=== PATIENT | female | born 1940 | race Caucasian/White ===

== ENCOUNTER 2018-05-01 09:15 | Emergency (ER) | payer MEDICARE, OTHER ==
[~2018-05-01] VITALS: Ht 165.1 cm; Wt 61.0 kg
[~2018-05-01 09:15] MED LIST: ACYC400T PO; ASPI81TA81; B-COTAB10 PO; MAGN400T2 PO; MULT-120 PO; POTA595T PO; TRAM50TA PO; XARE20TA PO; [UNRECOGNIZED DRUG - CODE] IV; [UNRECOGNIZED DRUG - OTHER] PO
[2018-05-01] MEDS ORDERED: SODIUM CHLOR 0.9% 1000 ML INJ 1,000 ML IV ONE (09:21)
--- NOTE | 2018-05-01 09:26 | PD ---
HPI Chief Complaint: Stroke Alert Time Seen by Provider: 09:21 Travel History International Travel<30 days: No Contact w/Intl Traveler<30days: No Traveled to known affect area: No History of Present Illness HPI This 77-year-old female says that yesterday she had poor vision in her left eye. She wake woke up this morning and was having coffee and noted that it was coming out of the side of her mouth. She looked at him mirror and noted that her left side of her face was deformed. She has no history of stroke. She does have a history of multiple myeloma and has been on chemotherapy since 2010. She is on Xarelto but she says she has not taken it for the last 2 days because she was taking some aspirin for back pain. sHe believes that her face looked normal yesterday. On questioning her later he says that he noticed some facial weakness last night. She does have a history of a pulmonary embolus and is on Xarelto. He is not having headache. There is no pain in the ear PFSH Past Medical History Arthritis: No Cancer: Yes (multiple myeloma) Cardiovascular Problems: No Chemotherapy: Yes (MULTIBLE MYLENOMA) Diabetes: No Diminished Hearing: No Neurologic: No Psychiatric: No Reproductive: No Respiratory: No Immunizations Current: Yes Thyroid Disease: No ?: Not Menopausal: Yes Past Surgical History Other Surgery: No Social History Alcohol Use: No Tobacco Use: No Substance Use: No Allergies-Medications (Allergen,Severity, Reaction): Coded Allergies: latex (Unverified Allergy, Unknown, RASH, 05/01/18) morphine (Unverified Allergy, Unknown, COMA, 05/01/18) oxycodone (Unverified Allergy, Unknown, COMA, 05/01/18) Reported Meds & Prescriptions Reported Meds & Active Scripts Active Reported Darzalex Inj (Daratumumab Inj) 400 Mg/20 Ml Soln 1 Injection IV V4HPHGH Xarelto (Rivaroxaban) 20 Mg Tab 20 Mg PO DAILY Acyclovir 400 Mg Tab 400 Mg PO WEEKLY Review of Systems General / Constitutional: No: Fever, Chills Eyes: Positive: Blurred Vision HENT: No: Headaches, Vertigo, Lightheadedness Cardiovascular: No: Chest Pain or Discomfort, Palpitations Respiratory: No: Cough, Shortness of Breath Gastrointestinal: No: Vomiting, Diarrhea Genitourinary: No: Urgency Musculoskeletal: Positive: Pain Skin: No Rash Neurologic: Positive: Weakness Endocrine: No: Heat Intolerance, Cold Intolerance Hematologic/Lymphatic: No: Easy Bruising Physical Exam Narrative GENERAL: well Developed female SKIN: Focused skin assessment warm/dry. HEAD: Atraumatic. Normocephalic. EYES: Pupils equal and round. No scleral icterus. No injection or drainage. ENT: No nasal bleeding or discharge. Mucous membranes pink and moist. NECK: Trachea midline. No JVD. CARDIOVASCULAR: Regular rate and rhythm. No murmur appreciated. RESPIRATORY: No accessory muscle use. Clear to auscultation. Breath sounds equal bilaterally. GASTROINTESTINAL: Abdomen soft, non-tender, nondistended. Hepatic and splenic margins not palpable. MUSCULOSKELETAL: No obvious deformities. No clubbing. No cyanosis. No edema. NEUROLOGICAL: Awake and alert. No obvious cranial nerve deficits. Motor grossly within normal limits. Normal speech. There is left-sided facial weakness. She is able to wrinkle the forehead. She is unable to close the eye tightly. Sensation is symmetric bilaterally PSYCHIATRIC: Normal insight and judgment Data Data Last Documented VS Vital Signs Date Time Temp Pulse Resp B/P (MAP) Pulse Ox O2 Delivery O2 Flow Rate FiO2 05/01/18 12:24 80 18 126/59 (81) 98 Room Air 05/01/18 09:36 97.8 Orders Orders Cath For Specimen (05/01/18 09:21) Neuro Checks Q2HX12,Q4H (05/01/18 09:21) Nursing Bedside Swallow Assess .ONCE (05/01/18 09:21) Activity Bed Rest (05/01/18 09:21) Diet Npo (05/01/18 Breakfast) Prothrombin Time / Inr (Pt) (05/01/18 09:21) Act Partial Throm Time (Ptt) (05/01/18 09:21) Complete Blood Count With Diff (05/01/18 09:21) Basic Metabolic Panel (Bmp) (05/01/18 09:21) Fibrinogen (05/01/18 09:21) Creatine Kinase (Cpk) (05/01/18 09:21) Troponin I (05/01/18 09:21) Ua Includes Microscopic (05/01/18 09:21) Drug Screen, Random Urine (05/01/18 09:21) Type And Screen (05/01/18 09:21) Ct Brain W/O Iv Contrast(Rout) (05/01/18 ) Electrocardiogram (05/01/18 ) Consult Neurology (05/01/18 09:21) Sodium Chlor 0.9% 1000 Ml Inj (Ns 1000 M (05/01/18 09:21) Blood Glucose (05/01/18 09:21) Ecg Monitoring (05/01/18 09:21) Iv Access Insert/Monitor (05/01/18 09:21) NPO (05/01/18 09:21) Oximetry (05/01/18 09:21) Resp Oxygen Nc Stroke (05/01/18 ) (Hub Use Only)Inp Phy Cons/Ref (05/01/18 ) Mri Brain W/O Contrast (05/01/18 09:34) Mra Brain W/O Contrast (Cow) (05/01/18 ) Labs Laboratory Tests Test 05/01/18 09:30 05/01/18 10:55 White Blood Count 3.2 TH/MM3 Red Blood Count 3.37 MIL/MM3 Hemoglobin 10.4 GM/DL Hematocrit 31.7 % Mean Corpuscular Volume 94.0 FL Mean Corpuscular Hemoglobin 30.8 PG Mean Corpuscular Hemoglobin Concent 32.8 % Red Cell Distribution Width 16.3 % Platelet Count 337 TH/MM3 Mean Platelet Volume 6.4 FL Neutrophils (%) (Auto) 61.0 % Lymphocytes (%) (Auto) 20.8 % Monocytes (%) (Auto) 15.6 % Eosinophils (%) (Auto) 2.1 % Basophils (%) (Auto) 0.5 % Neutrophils # (Auto) 1.9 TH/MM3 Lymphocytes # (Auto) 0.7 TH/MM3 Monocytes # (Auto) 0.5 TH/MM3 Eosinophils # (Auto) 0.1 TH/MM3 Basophils # (Auto) 0.0 TH/MM3 CBC Comment DIFF FINAL Differential Comment Prothrombin Time 10.6 SEC Prothromb Time International Ratio 1.0 RATIO Activated Partial Thromboplast Time 24.3 SEC Fibrinogen 452 mg/dL Blood Urea Nitrogen 16 MG/DL Creatinine 0.75 MG/DL Random Glucose 134 MG/DL Calcium Level 8.0 MG/DL Sodium Level 144 MEQ/L Potassium Level 4.1 MEQ/L Chloride Level 107 MEQ/L Carbon Dioxide Level 27.6 MEQ/L Anion Gap 9 MEQ/L Estimat Glomerular Filtration Rate 75 ML/MIN Total Creatine Kinase 25 U/L Troponin I LESS THAN 0.02 NG/ML Urine Collection Type VOIDED Urine Color YELLOW Urine Turbidity CLEAR Urine pH 7.0 Urine Specific [place] 1.015 Urine Protein NEG mg/dL Urine Glucose (UA) NEG mg/dL Urine Ketones NEG mg/dL Urine Occult Blood TRACE Urine Nitrite NEG Urine Bilirubin NEG Urine Urobilinogen 0.2 MG/DL Urine Leukocyte Esterase NEG Urine WBC 0-2 /hpf Urine Squamous Epithelial Cells 6-8 /hpf Urine Bacteria FEW /hpf Microscopic Urinalysis Comment Urine Opiates Screen NEG Urine Barbiturates Screen NEG Urine Amphetamines Screen NEG Urine Benzodiazepines Screen NEG Urine Cocaine Screen NEG Urine Cannabinoids Screen NEG MDM Medical Decision Making Medical Screen Exam Complete: Yes Emergency Medical Condition: Yes Medical Record Reviewed: Yes Differential Diagnosis Differential includes CVA, Montgomery's palsy Narrative Course On arrival we were led to believe that this is just started this morning stories stroke alert was called. A CT of the brain is negative. I have been able to talk to the and he relates that these weakness of the face actually started last night. Patient was initially declared a stroke alert. CT scan of the brain is negative. I spoke with Dr. Lewis who recommends MRI. The MRI is negative for stroke. This is consistent with Montgomery's palsy. Patient is on a lot of medication for her multiple myeloma. Her believes she takes 10 tablets of Decadron once a week. I am reluctant to prescribe a course of prednisone. I have tried to call her oncologist but have not been able to get through I have left a message. I will discharge the patient with a prescription for prednisone but I have urged her not to take it until we talk to the oncologist or until he talks to her Diagnosis Primary Impression: Montgomery's palsy Scripts Prednisone (Prednisone) 20 Mg Tab 20 MG PO DIRECTED, #24 TAB 0 Refills Take 60 MG daily x 4 days, then 40 MG x 4 days, then 20 MG daily x 4 days. Prov: Lee Pardo MD 05/01/18 Disposition: DISCHARGE HOME Condition: Stable Lee Pardo MD May 01, 2018 09:26
[2018-05-01 09:36] VITALS: BP 135/51; PULSE 91; RESP 18; TEMP 97.8; O2SAT 97
--- NOTE | 2018-05-01 09:38 | RADRPT ---
EXAM DATE: 05/01/2018 9:31 AM EDT AGE/SEX: 77 years / Female INDICATIONS: Stroke alert. Left facial droop. CLINICAL DATA: This is the patient's initial encounter. Patient reports that signs and symptoms have been present for 1 day and indicates a pain score of 0/10. MEDICAL/SURGICAL HISTORY: . Multiple myeloma. None. RADIATION DOSE: 51.25 CTDI (mGy) COMPARISON: [facility], CT BRAIN W/O CONTRAST, 03/31/2015. [facility], CT BRAIN W/O CONTRAST, 08/19/2013. . TECHNIQUE: CT of the head without contrast. Using automated exposure control and adjustment of the mA and/or kV according to patient size, radiation dose was kept as low as reasonably achievable to ob tain optimal diagnostic quality images. FINDINGS: Cerebrum: The ventricles are normal for age. No evidence of midline shift, mass lesion, hemorrhage or acute infarction. No extraaxial fluid collections are seen. Posterior Fossa: The cerebellum and brainstem are intact. The 4th ventricle is midline. The cerebe llopontine angle is unremarkable. Extracranial: The visualized portion of the orbits is intact. Skull: The calvaria is intact. No evidence of skull fracture. CONCLUSION: 1. Negative CT Head non contrast. The findings were called to Dr. Pardo at 9:37 AM on 05/01/2018. Electronically signed by: Paco Barrow MD 05/01/2018 9:37 AM EDT
[2018-05-01 09:41] VITALS: BP 137/59; PULSE 89; RESP 18; O2SAT 98
[2018-05-01 09:47] LABS: AUTOMATED NEUTROPHIL # 1.9 TH/MM3 (1.8-7.7); BASOPHIL % 0.5 % (0.0-2.0); EOSINOPHIL # 0.1 TH/MM3 (0-0.4); EOSINOPHIL % 2.1 % (0.0-4.0); HEMATOCRIT 31.7 % (35.0-46.0); HEMOGLOBIN 10.4 GM/DL (11.6-15.3); LYMPH % 20.8 % (9.0-44.0); LYMPHOCYTE # 0.7 TH/MM3 (1.0-4.8); MEAN CORPUSCULAR HEMOGLOBIN 30.8 PG (27.0-34.0); MEAN CORPUSCULAR HGB CONC 32.8 % (32.0-36.0); MEAN PLATELET VOLUME 6.4 FL (7.0-11.0); MONO % 15.6 % (0.0-8.0); MONOCYTE # 0.5 TH/MM3 (0-0.9); PLATELET COUNT 337 TH/MM3 (150-450); RED BLOOD COUNT 3.37 MIL/MM3 (4.00-5.30); RED CELL DISTRIBUTION WIDTH 16.3 % (11.6-17.2); WHITE BLOOD COUNT 3.2 TH/MM3 (4.0-11.0)
[2018-05-01 09:57] LABS: CHLORIDE 107 MEQ/L (98-107); SODIUM (NA) 144 MEQ/L (136-145)
[2018-05-01 09:58] LABS: BICARBONATE 27.6 MEQ/L (21.0-32.0); BLOOD UREA NITROGEN 16 MG/DL (7-18); GLUCOSE,RANDOM 134 MG/DL (74-106)
[2018-05-01 10:02] LABS: CREATININE 0.75 MG/DL (0.50-1.00); GLOMERULAR FILTRATION RATE 75 ML/MIN (>89)
[2018-05-01 10:11] LABS: TROPONIN I LESS THAN 0.02 NG/ML (0.02-0.05)
[2018-05-01 10:12] LABS: PROTHROMBIN TIME - PATIENT 10.6 SEC (9.8-11.6)
[2018-05-01 10:58] VITALS: BP 117/55; PULSE 88; RESP 18; O2SAT 97
[2018-05-01 11:10] LABS: BILIRUBIN, URINE NEG (NEG); BLOOD, URINE TRACE (NEG); GLUCOSE,URINE NEG (NEG); KETONE, URINE NEG (NEG); NITRITE,URINE NEG (NEG); URINE COLOR YELLOW (YELLW/STRAW); URINE LEUKOCYTE ESTERASE NEG (NEG)
[2018-05-01 11:15] LABS: BACTERIA, URINE FEW /hpf; WBC, URINE 0-2 /hpf (0-5)
[2018-05-01 12:24] VITALS: BP 126/59; PULSE 80; RESP 18; O2SAT 98
--- NOTE | 2018-05-01 13:06 | RADRPT ---
EXAM DATE: 05/01/2018 12:52 PM EDT AGE/SEX: 77 years / Female INDICATIONS: Stroke alert. Left sided facial droop. CLINICAL DATA: This is the patient's initial encounter. Patient reports that signs and symptoms have been present for 2 days and indicates a pain score of 0/10. MEDICAL/SURGICAL HISTORY: . Multiple myeloma. . Port placement. COMPARISON: No prior exams available for comparison. TECHNIQUE: Multiplanar, multisequence examination of the brain was performed without contrast. FINDINGS: Cerebrum: The ventricles are normal for age. No evidence of midline shift, mass lesion, hemorrhage or acute infarction. No extraaxial fluid collections are seen. The pituitary gland and suprasellar cistern are normal in configuration. White Matter: No significant signal abnormalities are seen in the white matter. Posterior Fossa: The cerebellum and brainstem are intact. The 4th ventricle is midline. The cerebel lopontine angle is unremarkable. The cerebellar tonsils are normal in position. Diffusion Imaging: No focal areas of restricted diffusion are seen. No evidence of acute infarction . Extracranial: The visualized portions of the orbits and paranasal sinuses are unremarkable. CONCLUSION: 1. Negative MR Brain non contrast. Electronically signed by: Paco Barrow MD 05/01/2018 1:04 PM EDT
--- NOTE | 2018-05-01 13:07 | RADRPT ---
EXAM DATE: 05/01/2018 12:55 PM EDT AGE/SEX: 77 years / Female INDICATIONS: Stroke alert. Left sided facial droop. CLINICAL DATA: This is the patient's initial encounter. Patient reports that signs and symptoms have been present for 2 days and indicates a pain score of 0/10. MEDICAL/SURGICAL HISTORY: . Multiple myeloma. Non-responsive. Port placement. COMPARISON: No prior exams available for comparison. TECHNIQUE: 3D [id number] MRA was performed. Source images, multiplanar STS MIP, and 3D volum e MIP reconstructions were reviewed. FINDINGS: There is excellent visualization of the major intracranial arteries out to the second-order branch ve ssels. There is no evidence for aneurysm, vessel truncation or stenosis, and no evidence for vascula r malformation. There are patent bilateral posterior communicating arteries. CONCLUSION: 1. No evidence of focal stenosis, occlusion or aneurysm. 2. Patent bilateral posterior communicating arteries. Electronically signed by: Paco Barrow MD 05/01/2018 1:06 PM EDT
[2018-05-01] MEDS ORDERED: PRED20 PO (13:43)
[2018-05-01 13:51] VITALS: BP 125/76
--- NOTE | 2018-05-01 13:59 | EKG ---
Date Performed: 05/01/2018 Time Performed: 09:50:59 PTAGE: 77 years EKG: Sinus rhythm BORDERLINE LEFT AXIS DEVIATION BORDERLINE ECG No significant change from prior electrocardiogram. PREVIOUS TRACING : 03/31/2015 16.32 DOCTOR: Tray Fletcher Interpretating Date/Time 05/01/2018 13:57:52
== END 2018-05-01 13:56 | disposition home or self-care (01) ==
LOC: PHED 09:15
DX: G51.0 Bell's palsy (principal); R94.31 Abnormal electrocardiogram [ECG] [EKG]; C90.00 Multiple myeloma not having achieved remission; M54.9 Dorsalgia, unspecified; Z86.711 Personal history of pulmonary embolism; Z79.01 Long term (current) use of anticoagulants; Z79.899 Other long term (current) drug therapy
CPT/HCPCS: 70450; 70544; 70551; 80048; 80307; 81001; 82550; 84484; 85025; 85384; 85610; 85730; 86850; 86900; 86901; 93005; 96360; 96361; 99285; J7030

== ENCOUNTER 2018-07-27 00:24 | Observation (INO) ==
--- NOTE | 2018-07-27 00:59 | ED ---
HPI General Chief complaint: Shortness of Breath/Dyspnea Stated complaint: sob Time Seen by Provider: 07/27/18 00:36 Source: patient and EMS Mode of arrival: ambulatory Limitations: no limitations History of Present Illness HPI narrative: 77-year-old woman, history of multiple myeloma, nonambulatory due to she reports a multiple myeloma, currently holding her oral cancer medications, including velcade, dexamethasone, and farydak, presents to the emergency department complaining of shortness of breath. She states it was a "bad day" for her as far as pain today. She is taking her regular pain medications. She laid down at night to go to the bed and states that she has shortness of breath. She states similarly shortness of breath that developed when she was getting MRI scans with her cancer doctor and she was taken to the emergency department several months ago. No etiology was found at that time. She was a remote history of PE many years ago. She continues on Xarelto. She reports otherwise feeling generally well and healthy. Related Data Home Medications Medication Instructions Recorded Confirmed Mag 64 07/27/18 07/27/18 acyclovir 400 mg PO BID 07/27/18 07/27/18 dexamethasone 4 mg PO Q8H 07/27/18 07/27/18 hydromorphone 2 mg PO Q6H PRN 07/27/18 07/27/18 oxycodone [OxyContin] 20 mg PO BID PRN 07/27/18 07/27/18 panobinostat [Farydak] 20 mg PO DAILY 07/27/18 07/27/18 potassium chloride 10 meq PO BID 07/27/18 07/27/18 rivaroxaban [Xarelto] 20 mg PO DAILY 07/27/18 07/27/18 sennosides [Senna Lax] 8.6 mg PO BID PRN 07/27/18 07/27/18 valacyclovir 1,000 mg PO TID 07/27/18 07/27/18 Allergies Allergy/AdvReac Type Severity Reaction Status Date / Time latex Allergy Unknown RASH Verified 07/27/18 00:31 morphine Allergy Unknown COMA Verified 07/27/18 00:31 oxycodone Allergy Unknown COMA Verified 07/27/18 00:31 Review of Systems ROS: all other systems reviewed are negative [facility] Medical History Medical History Multiple myeloma (Chronic) Pulmonary embolism (Resolved) Surgical History Surgical History No history of previous surgery (Chronic) Social History Social History Substance History: No History of Abuse Smoking Status: Never smoker How Often Do You Have a Drink Containing Alcohol: Never Recent Travel in [facility] within the Last 8 Weeks: No Recent Out of Country Travel within the Last 8 Weeks: No Exam Narrative Exam Narrative: GENERAL: 77-year-old woman, anxious appearing, nontoxic. SKIN: Focused skin assessment warm/dry. HEAD: Atraumatic. Normocephalic. EYES: Pupils equal and round. No scleral icterus. No injection or drainage. ENT: No nasal bleeding or discharge. Mucous membranes pink and moist. NECK: Trachea midline. No JVD. CARDIOVASCULAR: Regular rate and rhythm. No murmur appreciated. RESPIRATORY: No accessory muscle use. Clear to auscultation. Breath sounds equal bilaterally. GASTROINTESTINAL: Abdomen soft, non-tender, nondistended. Hepatic and splenic margins not palpable. MUSCULOSKELETAL: No obvious deformities. No edema. NEUROLOGICAL: Awake and alert. No obvious cranial nerve deficits. Motor grossly within normal limits. Normal speech. PSYCHIATRIC: Anxious. Course Reevaluation(s) Reevaluation #1: Patient continues to have severe lower extremity pain etiology is unclear but likely spinal stenosis. She also has continued to endorse severe breathlessness, especially when she lays flat. She has been unable to get her CT pulmonary angiogram, despite ramping the patient up, and despite treatment of her pain and reassurance. Etiologies for her breathlessness are unclear. Pericardial effusion could presumably present this way but I think it is unlikely. PE possible but also unlikely. My suspicion is there is a strong component of anxiety. She has not had this in the past. is worried also because of the situation at home with her stairs and the ramp that it may be contributing to her shortness of breath and their difficulty in caring for her. At this point I think it is reasonable to admit her, get her pain under better control, consider V/Q if she is unable to tolerate a CT pulmonary angiogram, consider echo. I discussed this with Dr. Camara, is willing to admit the patient for observation. Time: 04:04 Initial Documented Vital Signs Temperature 97.7 F 07/27/18 00:32 Pulse Rate 96 H 07/27/18 00:32 Respiratory Rate 18 07/27/18 00:32 Blood Pressure 136/65 07/27/18 00:32 Pulse Oximetry 96 07/27/18 00:32 Last Documented Vital Signs Temperature 97.7 F 07/27/18 00:32 Pulse Rate 94 H 07/27/18 02:20 Respiratory Rate 18 07/27/18 02:20 Blood Pressure 134/61 07/27/18 02:20 Pulse Oximetry 97 07/27/18 02:20 Medical Decision Making MDM Narrative Medical decision making narrative: 27-year-old woman, history of multiple myeloma, presents with report of not breathing right. She is a very unremarkable exam. No respiratory distress. Normal pulmonary exam. No tachycardia. She seems anxious. She denies any history of anxiety. Of note her previous shortness of breath episode was while she was getting an MRI and reportedly had a normal workup at the outside ED. She overall looks well. Will check x-ray, labs including BNP and d-dimer, reassess. She was asked to be put on oxygen. I recommended we try small dose of Ativan. Medical Screen Exam Complete: Yes Emergency Medical Condition: Yes Lab Data Result diagrams: 07/27/18 01:15 07/27/18 01:15 Lab Results 07/27/18 07/27/18 07/27/18 Range/Units 01:15 01:15 01:15 CBC w Diff Auto diff final WBC 4.5 (4.0-11.0) th/mm3 RBC 2.81 L (4.00-5.30) mil/mm3 Hgb 9.0 L (11.6-15.3) gm/dL Hct 25.8 L (35.0-46.0) % MCV 91.8 (80.0-100.0) fL MCH 32.2 (27.0-34.0) pg MCHC 35.1 (32.0-36.0) % RDW 16.3 (11.6-17.2) % Plt Count 170 (150-450) th/mm3 MPV 6.6 L (7.0-11.0) fL Neut % (Auto) 75.7 H (16.0-70.0) % Lymph % (Auto) 11.5 (9.0-44.0) % Emmet % (Auto) 12.5 H (0.0-8.0) % Eos % (Auto) 0.1 (0.0-4.0) % Baso % (Auto) 0.2 (0.0-2.0) % Neut # (Auto) 3.4 (1.8-7.7) th/mm3 Lymph # (Auto) 0.5 L (1.0-4.8) th/mm3 Emmet # (Auto) 0.6 (0.0-0.9) th/mm3 Eos # (Auto) 0.0 (0.0-0.4) th/mm3 Baso # (Auto) 0.0 (0.0-0.2) th/mm3 WBC Differential . Differential Comment . D-Dimer Quant (PE/DVT) 1.29 H (0.00-0.50) mg/L FEU Sodium 138 (136-145) meq/L Potassium 3.8 (3.5-5.1) meq/L Chloride 106 (98-107) meq/L Carbon Dioxide 21.4 (21.0-32.0) meq/L Anion Gap 11 (5-15) meq/L BUN 41 H (7-18) mg/dL Creatinine 0.84 (0.50-1.00) mg/dL Estimated GFR 66 L (>89) mL/min Random Glucose 90 (74-106) mg/dL Calcium 7.7 L (8.5-10.1) mg/dL Total Bilirubin 0.4 (0.2-1.0) mg/dL AST 45 H (15-37) U/L ALT 41 (10-53) U/L Alkaline Phosphatase 317 H (45-117) U/L Troponin I Less than 0.02 L (0.02-0.05) ng/mL B-Natriuretic Peptide (0-100) pg/mL Total Protein 5.5 L (6.4-8.2) g/dL Albumin 2.8 L (3.4-5.0) g/dL 07/27/18 Range/Units 01:15 CBC w Diff WBC (4.0-11.0) th/mm3 RBC (4.00-5.30) mil/mm3 Hgb (11.6-15.3) gm/dL Hct (35.0-46.0) % MCV (80.0-100.0) fL MCH (27.0-34.0) pg MCHC (32.0-36.0) % RDW (11.6-17.2) % Plt Count (150-450) th/mm3 MPV (7.0-11.0) fL Neut % (Auto) (16.0-70.0) % Lymph % (Auto) (9.0-44.0) % Emm[place] % (Auto) (0.0-8.0) % Eos % (Auto) (0.0-4.0) % Baso % (Auto) (0.0-2.0) % Neut # (Auto) (1.8-7.7) th/mm3 Lymph # (Auto) (1.0-4.8) th/mm3 [place] # (Auto) (0.0-0.9) th/mm3 Eos # (Auto) (0.0-0.4) th/mm3 Baso # (Auto) (0.0-0.2) th/mm3 WBC Differential Differential Comment D-Dimer Quant (PE/DVT) (0.00-0.50) mg/L FEU Sodium (136-145) meq/L Potassium (3.5-5.1) meq/L Chloride (98-107) meq/L Carbon Dioxide (21.0-32.0) meq/L Anion Gap (5-15) meq/L BUN (7-18) mg/dL Creatinine (0.50-1.00) mg/dL Estimated GFR (>89) mL/min Random Glucose (74-106) mg/dL Calcium (8.5-10.1) mg/dL Total Bilirubin (0.2-1.0) mg/dL AST (15-37) U/L ALT (10-53) U/L Alkaline Phosphatase (45-117) U/L Troponin I (0.02-0.05) ng/mL B-Natriuretic Peptide 54 (0-100) pg/mL Total Protein (6.4-8.2) g/dL Albumin (3.4-5.0) g/dL Imaging Data Radiologist's impression: Chest X-Ray 07/27/18 00:53 CONCLUSION: Questionable opacity in the retrocardiac left lower lung. Recommend further characterization with noncontrast CT thorax. Discharge Plan Discharge Disposition Patient Disposition: 30 Still Patient Physicians Team ED Provider: Kehinde Gayle Primary Care Provider: NON STAFF,PROVIDER Rxs /Orders / Referrals /Forms Prescriptions: No Action sennosides [Senna Lax] 8.6 mg Tablet 8.6 mg PO BID PRN (Reason: Abdominal Discomfort) RF: 0 valacyclovir 1 gram Tablet 1,000 mg PO TID RF: 0 potassium chloride 10 mEq Tablet Extended Release 10 meq PO BID RF: 0 acyclovir 400 mg Tablet 400 mg PO BID RF: 0 hydromorphone 2 mg Tablet 2 mg PO Q6H PRN (Reason: Abdominal Discomfort) RF: 0 dexamethasone 4 mg Tablet 4 mg PO Q8H RF: 0 rivaroxaban [Xarelto] 20 mg Tablet 20 mg PO DAILY RF: 0 oxycodone [OxyContin] 20 mg Tablet,Oral Only,Ext.Rel.12 Hr 20 mg PO BID PRN (Reason: Acute Pain) RF: 0 panobinostat [Farydak] 20 mg Capsule 20 mg PO DAILY RF: 0 Mag 64 RF: 0 Discharge Interventions Interventions: Vital Signs Last Done: 07/27/18 02:20 Status ED Status: With Doctor
--- NOTE | 2018-07-27 01:17 | XR ---
EXAM DATE: 07/27/2018 1:11 AM EDT AGE/SEX: 77 years / Female INDICATIONS: Shortness of breath worsening for the past 2 days. CLINICAL DATA: This is the patient's initial encounter. Patient reports that signs and symptoms have been present for 2 days and indicates a pain score of 0/10. MEDICAL/SURGICAL HISTORY: . Multiple myeloma. . Port placement COMPARISON: [facility], CHEST PA & LAT, 11/15/2016. . FINDINGS: The lungs are symmetrically aerated. 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 [id number] catheter tip in the right atrium. The heart is normal in siz e. Moderate tortuosity descending aorta. There is a questionable opacity in the retrocardiac region w ithout air bronchograms. Both hemidiaphragms are well delineated. The central bronchopulmonary markin gs are well delineated. CONCLUSION: Questionable opacity in the retrocardiac left lower lung. Recommend further characterization with non contrast CT thorax. Electronically signed by: Main Bonner MD 07/27/2018 1:15 AM EDT
[2018-07-27 01:37] LABS: Chloride 106 meq/L (98-107); Potassium 3.8 meq/L (3.5-5.1); Sodium 138 meq/L (136-145)
[2018-07-27 01:39] LABS: Baso % (Auto) 0.2 % (0.0-2.0); Eos % (Auto) 0.1 % (0.0-4.0); Hematocrit 25.8 % (35.0-46.0); Lymph # (Auto) 0.5 th/mm3 (1.0-4.8); Lymph % (Auto) 11.5 % (9.0-44.0); Mean Corpuscular HGB Conc 35.1 % (32.0-36.0); Mean Corpuscular Hemoglobin 32.2 pg (27.0-34.0); Mean Corpuscular Volume 91.8 fL (80.0-100.0); Mean Platelet Volume 6.6 fL (7.0-11.0); Mono # (Auto) 0.6 th/mm3 (0.0-0.9); Mono % (Auto) 12.5 % (0.0-8.0); Neut # (Auto) 3.4 th/mm3 (1.8-7.7); Neut % (Auto) 75.7 % (16.0-70.0); Platelet Count 170 th/mm3 (150-450); Red Blood Count 2.81 mil/mm3 (4.00-5.30); Red Cell Distribution Width 16.3 % (11.6-17.2); White Blood Count 4.5 th/mm3 (4.0-11.0)
[2018-07-27 01:40] LABS: Calcium 7.7 mg/dL (8.5-10.1)
[2018-07-27 01:41] LABS: Albumin 2.8 g/dL (3.4-5.0); Anion Gap 11 meq/L (5-15); Blood Urea Nitrogen 41 mg/dL (7-18); Carbon Dioxide 21.4 meq/L (21.0-32.0); Glucose,Random 90 mg/dL (74-106)
[2018-07-27 01:44] LABS: Alanine Aminotransferase 41 U/L (10-53); Aspartate Aminotransferase 45 U/L (15-37); Glomerular Filtration Rate 66 mL/min (>89)
[2018-07-27 01:45] LABS: Total Protein 5.5 g/dL (6.4-8.2)
[2018-07-27 01:47] LABS: Alkaline Phosphatase 317 U/L (45-117)
[2018-07-27] MEDS ORDERED: Sod Chloride 0.9% Inj 1,000 ML IV.SIG SCH (02:00)
[2018-07-27] MEDS ORDERED: HYDROmorphone PF Inj 2 MG/ML Vial IV.PUSH ONE (03:39)
[2018-07-27] MEDS ORDERED: oxyCODONE HCL 20 MG Controlled Release Tablet PO PRN (03:59)
[2018-07-27] MEDS ORDERED: Acetaminophen 325 MG Tablet PO PRN (04:00)
[2018-07-27] MEDS ORDERED: Bisacodyl 10 MG Supp RECTAL PRN (04:00)
--- NOTE | 2018-07-27 08:18 | P.HP ---
History of Present Illness Primary Care Physician: PROVIDER NON STAFF Chief Complaint: Shortness of breath History of Present Illness: 77-year-old female with known history of pulmonary emboli, multiple myeloma, chronic pain who presented to the hospital because of shortness of breath. Patient states that she is undergoing chemotherapy by [place] oncologist and she indicates that she has had 2 episodes of shortness of breath after she has received chemotherapy. She had an episode one half weeks ago, she never notified her oncologist about the episode and it resolved on its own. Patient then had another episode last evening when she was laying down. Because of the symptoms she came to emergency department for evaluation. During her entire stay in the hospital there is been no episodes of any hypoxia or tachypnea. Patient had been diagnosed with pulmonary emboli several years ago and she is currently taking Xarelto. Pulmonary angiogram was attempted last night, however is indicated that she was intolerant due to pain and shortness of breath. Upon evaluating the patient this morning she is resting comfortably. Denies any shortness of breath. 98% O2 saturations on room air. Patient denies any cough, congestion, chest pain, abdominal pain, nausea, vomiting, diaphoresis. - Diagnosis (1) Shortness of breath Review of Systems All other systems reviewed negative except as stated in HPI Cardiovascular: Reports shortness of breath PMFSH - History History Provided By: Patient, Significant Other - Medical History Medical History: Medical History (Last Updated 07/27/18 @ 08:26 by SAHRA Reed) Chronic pain Multiple myeloma Pulmonary embolism - Surgical History Surgical History: Surgical History (Last Updated 07/27/18 @ 08:28 by SAHRA Reed) History of stem cell transplant Port-A-Cath in place - Family History Family History: Family History (Last Updated 07/27/18 @ 08:27 by SAHRA Reed) Mother History of breast cancer Father History of prostate cancer - Tobacco History Second Hand Smoke Exposure: No Smoking Status: Never smoker - Alcohol History How Often Do You Have a Drink Containing Alcohol: Never - Substance Use History Substance History: No History of Abuse - Travel History Recent Travel in the [place] Within the Last 8 Weeks: No Recent Travel Out of the Country Within the Last 8 Weeks: No - Immunization History Tetanus Immunization: Unsure Hx Influenza Vaccine This Season: No Medications and Allergies Active Medications: Active Medications Acetaminophen (Tylenol) 650 mg PO Q4H PRN PRN Reason: Temp > 100.4 Al Hydroxide/Mg Hydroxide (Milk Of Magnesia Liq) 30 ml PO Q12H PRN PRN Reason: Mild Constipation Bisacodyl (Dulcolax Supp) 10 mg RECTAL DAILY PRN PRN Reason: SEVERE CONSITIPATION Hydromorphone HCl (Dilaudid) 2 mg PO Q6H PRN PRN Reason: Abdominal Discomfort Sodium Chloride (Ns Inj) 1,000 mls @ 0 mls/hr IV.SIG BOLUS PAUL Last Infusion: 07/27/18 05:15 Dose: Infused Lactulose (Lactulose Liq) 30 ml PO DAILY PRN PRN Reason: SEVERE CONSITIPATION Lorazepam (Ativan Inj) 0.5 mg IV.PUSH ONCE ONE Stop: 07/27/18 08:31 Ondansetron HCl (Zofran Inj) 4 mg IV.PUSH Q6H PRN PRN Reason: NAUSEA OR VOMITING Oxycodone HCl (Oxycontin Cr) 20 mg PO BID PRN PRN Reason: Acute Pain Rivaroxaban (Xarelto) 20 mg PO DAILY [facility] Senna/Docusate Sodium (Candice-Colace) 1 tab PO BID [facility] Sennosides (Senokot) 17.2 mg PO Q12H PRN PRN Reason: Moderate Constipation Allergies Allergy/AdvReac Type Severity Reaction Status Date / Time latex Allergy Unknown RASH Verified 07/27/18 00:31 morphine Allergy Unknown COMA Verified 07/27/18 00:31 oxycodone Allergy Unknown COMA Verified 07/27/18 00:31 Home Medications Medication Instructions Recorded Confirmed Type Mag 64 07/27/18 07/27/18 History acyclovir 400 mg PO BID 07/27/18 07/27/18 History dexamethasone 4 mg PO Q8H 07/27/18 07/27/18 History hydromorphone 2 mg PO Q6H PRN 07/27/18 07/27/18 History oxycodone [OxyContin] 20 mg PO BID PRN 07/27/18 07/27/18 History panobinostat [Farydak] 20 mg PO DAILY 07/27/18 07/27/18 History potassium chloride 10 meq PO BID 07/27/18 07/27/18 History rivaroxaban [Xarelto] 20 mg PO DAILY 07/27/18 07/27/18 History sennosides [Senna Lax] 8.6 mg PO BID PRN 07/27/18 07/27/18 History valacyclovir 1,000 mg PO TID 07/27/18 07/27/18 History Exam Vital signs: Vital Signs 07/27/18 00:32 07/27/18 00:55 07/27/18 02:20 Temperature 97.7 F Pulse Rate 96 H 94 H Respiratory Rate 18 18 Blood Pressure 136/65 134/61 Pulse Oximetry 96 96 97 07/27/18 04:39 07/27/18 05:05 07/27/18 05:15 Temperature 96 F L Pulse Rate 90 96 H Respiratory Rate 18 20 Blood Pressure 122/61 127/60 Pulse Oximetry 97 97 98 Intake & Output 07/26/18 07/27/18 07/27/18 18:59 06:59 18:59 Intake Total 1000 / 1000 Output Total 300 / 300 Balance 1000 / 1000 -300 / -300 Weight 55.1 kg Intake: IV 1000 / 1000 NS Inj 1,000 ML @ Wide Open IV. 1000 / 1000 SIG BOLUS PAUL Rx#:[id number] Oral 0 / 0 Output: Urine 300 / 300 Other: # Voids 0 1 # Bowel Movements 0 Weight On Admission 55.1 kg Narrative: GENERAL: Well-developed, well-nourished, in no acute distress. alert and orientated HEENT: Head is normocephalic without any lesions or masses noted. Facial features are symmetric. Eyes: Pupils equal round reactive to light. Extraocular muscles are intact. Conjunctivae were clear. Oropharyngeal: Pharynx without any erythema edema. Tongue is midline without deviation. Buccal mucosa is moist without any masses or lesions NECK: Supple without any masses. Trachea midline no deviation. No JVD, no bruits are appreciated CARDIAC: Regular rhythm, regular rate. S1/S2 are heard. No murmurs gallops or rubs. LUNGS: Clear to auscultation bilaterally. No wheeze, rhonchi or rales. No use of accessory muscles on inspiration or expiration. ABDOMEN: Soft, nontender. Nondistended. Bowel sounds heard in all 4 quadrants. No organomegaly or masses. Negative rebound, negative guarding EXTREMITIES: No edema, pulses are equal bilaterally. No cyanosis or clubbing NEUROLOGY: Mood and affect appear appropriate. Cranial nerves II through XII grossly intact. Muscle strength 5/5 in upper and lower extremities bilaterally. Deep tendon reflexes are 2+ in upper and lower extremities bilaterally. Results - Labs CBC & Chem 7: 07/27/18 01:15 07/27/18 01:15 Labs: Laboratory Results - last 24 hr 07/27/18 07/27/18 07/27/18 01:15 01:15 01:15 CBC w Diff Auto diff final WBC 4.5 RBC 2.81 L Hgb 9.0 L Hct 25.8 L MCV 91.8 MCH 32.2 MCHC 35.1 RDW 16.3 Plt Count 170 MPV 6.6 L Neut % (Auto) 75.7 H Lymph % (Auto) 11.5 Sully % (Auto) 12.5 H Eos % (Auto) 0.1 Baso % (Auto) 0.2 Neut # (Auto) 3.4 Lymph # (Auto) 0.5 L Sully # (Auto) 0.6 Eos # (Auto) 0.0 Baso # (Auto) 0.0 WBC Differential . Differential Comment . D-Dimer Quant (PE/DVT) 1.29 H Sodium 138 Potassium 3.8 Chloride 106 Carbon Dioxide 21.4 Anion Gap 11 BUN 41 H Creatinine 0.84 Estimated GFR 66 L Random Glucose 90 Calcium 7.7 L Total Bilirubin 0.4 AST 45 H ALT 41 Alkaline Phosphatase 317 H Troponin I Less than 0.02 L B-Natriuretic Peptide Total Protein 5.5 L Albumin 2.8 L 07/27/18 01:15 CBC w Diff WBC RBC Hgb Hct MCV MCH MCHC RDW Plt Count MPV Neut % (Auto) Lymph % (Auto) Sully % (Auto) Eos % (Auto) Baso % (Auto) Neut # (Auto) Lymph # (Auto) Sully # (Auto) Eos # (Auto) Baso # (Auto) WBC Differential Differential Comment D-Dimer Quant (PE/DVT) Sodium Potassium Chloride Carbon Dioxide Anion Gap BUN Creatinine Estimated GFR Random Glucose Calcium Total Bilirubin AST ALT Alkaline Phosphatase Troponin I B-Natriuretic Peptide 54 Total Protein Albumin - Imaging Impressions Chest X-Ray 07/27/18 00:53 CONCLUSION: Questionable opacity in the retrocardiac left lower lung. Recommend further characterization with noncontrast CT thorax. Chest X-Ray 07/27/18 00:53 CONCLUSION: Questionable opacity in the retrocardiac left lower lung. Recommend further characterization with noncontrast CT thorax. Chest CTA 07/27/18 01:53 CONCLUSION: No evidence of pulmonary embolism. 8 mm nodule in the left hilar region which may reflect pulmonary nodule or lymph node. PET/CT scan is recommended to further evaluation if clinically indicated . Stable 2 cm nodule left lobe of the thyroid Caprini VTE Risk Assessment Caprini VTE Risk Assessment: Moderate/High Risk (score >= 2) Caprini Risk Assessment Model: Point Value = 1 Point Value = 2 Point Value = 3 Point Value = 5 Age 41-60 Minor surgery BMI > 25 kg/m2 Swollen legs Varicose veins or History of unexplained or recurrent spontaneous Oral contraceptives or hormone replacement Sepsis (< 1 month) Serious lung disease, including pneumonia (< 1 month) Abnormal pulmonary function Acute myocardial infarction Congestive heart failure (< 1 month) History of inflammatory bowel disease Medical patient at bed rest Age 61-74 Arthroscopic surgery Major open surgery (> 45 min) Laparoscopic surgery (> 45 min) Malignancy Confined to bed (> 72 hours) Immobilizing plaster cast Central venous access Age >= 75 History of VTE Family history of VTE Factor V Leiden Prothrombin [id number] Lupus anticoagulant Anticardiolipin antibodies Elevated serum homocysteine Heparin-induced thrombocytopenia Other congenital or acquired thrombophilia Stroke (< 1 month) Elective arthroplasty Hip, pelvis, or leg fracture Acute spinal cord injury (< 1 month) Prophylaxis Regimen: Total Risk Factor Score Risk Level Prophylaxis Regimen 0-1 Low Early ambulation 2 Moderate Order ONE of the following: *Sequential Compression Device (SCD) *Heparin 5000 units SQ BID 3-4 Higher Order ONE of the following medications: *Heparin 5000 units SQ TID *Enoxaparin/Lovenox 40 mg SQ daily (WT < 150 kg, CrCl > 30 mL/min) *Enoxaparin/Lovenox 30 mg SQ daily (WT < 150 kg, CrCl > 10-29 mL/min) *Enoxaparin/Lovenox 30 mg SQ BID (WT < 150 kg, CrCl > 30 mL/min) AND/OR *Sequential Compression Device (SCD) 5 or more Highest Order ONE of the following medications: *Heparin 5000 units SQ TID (Preferred with Epidurals) *Enoxaparin/Lovenox 40 mg SQ daily (WT < 150 kg, CrCl > 30 mL/min) *Enoxaparin/Lovenox 30 mg SQ daily (WT < 150 kg, CrCl > 10-29 mL/min) *Enoxaparin/Lovenox 30 mg SQ BID (WT < 150 kg, CrCl > 30 mL/min) AND *Sequential Compression Device (SCD) Assessment and Plan - Assessment (1) Shortness of breath Code(s): R06.02 - Shortness of breath Status: Acute - Plan Shortness of breath, unknown etiology -Patient has had some mild tachycardia, no signs of any hypoxia or tachypnea -Chest x-ray does indicate possible retrocardiac left lower lung opacity -Pulmonary angiogram did not indicate any pulmonary emboli. Shows stable 2 cm nodule left lobe of the thyroid, 8 mm nodule in the left hilar region which may reflect pulmonary nodule or lymph node. -Echocardiogram CONCLUSIONS The left ventricular systolic function is normal with an estimated ejection fraction in the range of 55-60%. Normal left ventricular size. Wall thickness is normal. No regional wall motion abnormalities are present. Aortic valve sclerosis is present. Moderate aortic valve regurgitation. There is trace tricuspid valve regurgitation. Normal estimated pulmonary pressures. Multiple myeloma -Continue home medications History of pulmonary emboli -Continue Xarelto Chronic pain -Continue home medication DVT prevention -Patient is on Xarelto Discharge Planning: Discharge home in stable condition Activity: Ad dion. Diet: Regular diet Medication per medication reconciliation Follow-up with primary medical doctor in 1 week
[2018-07-27] MEDS ORDERED: Senna/Docusate Sodium 8.6/50 MG Tablet PO SCH (09:00)
[2018-07-27] MEDS ORDERED: Rivaroxaban 20 MG Tablet PO SCH (09:00)
--- NOTE | 2018-07-27 09:17 | CT ---
EXAM DATE: 07/27/2018 9:04 AM EDT AGE/SEX: 77 years / Female INDICATIONS: Shortness of breath. CLINICAL DATA: This is the patient's initial encounter. Patient reports that signs and symptoms have been present for 1 day and indicates a pain score of 9/10. MEDICAL/SURGICAL HISTORY: . Multiple myeloma. Pulmonary embolism. None. RADIATION DOSE: 10.50 CTDI (mGy) COMPARISON: [facility], CT CERVICAL SPINE W/O CONTRAST, 08/19/2013. . TECHNIQUE: Volumetric scanning was performed using a multi-row detector CT scanner during bolus infu marla of 75 ml Omnipaque 350 (iohexol) nonionic water-soluble contrast as a single exam dose. The derrick a was post processed with a variety of visualization algorithms including full volume maximum intensi ty projection and sliding thin slab reformation. Using automated exposure control and adjustment of the mA and/or kV according to patient size, radiation dose was kept as low as reasonably achievable t o obtain optimal diagnostic quality images. DICOM format image data is available electronically for review and comparison. FINDINGS: Examination of the pulmonary vasculature demonstrates good filling of the main, lobar and segmental b ranches. There are no filling defects to suggest pulmonary embolism. Multiplanar reconstructions are also unremarkable. The lungs are free of acute parenchymal opacity. There is an 8 mm nodule adjacent to a segmental bron chus in the left lower lobe. Whether this is a parenchymal nodule or lymph node is uncertain. PET/CT scan is recommended to further evaluation if clinically indicated Examination of the mediastinum demonstrates no abnormally enlarged lymph nodes by CT criteria. No axi llary or hilar abnormalities are identified. Coronary artery calcifications are present. A small hiat al hernia is present. There is hypodensity within the liver compatible with cyst measuring 3 cm in segment 8. There is a 2 cm nodule in the left lobe of the thyroid. This is stable when compared with 2012. CONCLUSION: No evidence of pulmonary embolism. 8 mm nodule in the left hilar region which may reflect pulmonary nodule or lymph node. PET/CT scan is recommended to further evaluation if clinically indicated . Stable 2 cm nodule left lobe of the thyroid Electronically signed by: Shakeel Pulido MD 07/27/2018 9:16 AM EDT
[2018-07-27 10:46] VITALS: BP 130/62; PULSE 97; RESP 12; TEMP 98; O2SAT 97
--- NOTE | 2018-07-27 12:31 | ECHRPT ---
Indication: SHORTNESS OF BREATH CONCLUSIONS The left ventricular systolic function is normal with an estimated ejection fraction in the range of 55-60%. Normal left ventricular size. Wall thickness is normal. No regional wall motion abnormalities are present. Aortic valve sclerosis is present. Moderate aortic valve regurgitation. There is trace tricuspid valve regurgitation. Normal estimated pulmonary pressures. BP: / HR: Rhythm: MEASUREMENTS (Male / Female) Normal Values Technical Quality: 2D ECHO LV Diastolic Diameter PLAX 4.3 cm 4.2 - 5.9 / 3.9 - 5.3 cm LV Systolic Diameter PLAX 3.1 cm IVS Diastolic Thickness 0.9 cm 0.6 - 1.0 / 0.6 - 0.9 cm LVPW Diastolic Thickness 0.9 cm 0.6 - 1.0 / 0.6 - 0.9 cm LV Relative Wall Thickness 0.4 RV Internal Dim ED PLAX 3.0 cm LVOT Diameter 1.8 cm LA Systolic Diameter LX 3.8 cm 3.0 - 4.0 / 2.7 - 3.8 cm LV Ejection Fraction MOD 4C 58.3 % LV Ejection Fraction 4C AL 59.8 % M-MODE Aortic Root Diameter MM 1.8 cm LA Systolic Diameter MM 3.0 cm LA Ao Ratio MM 1.7 AV Cusp Separation MM 1.9 cm DOPPLER AV Peak Velocity 134.0 cm/s AV Peak Gradient 7.2 mmHg AI Peak Velocity 450.0 cm/s AI Peak Gradient 81.0 mmHg AI Pressure Half Time 289.5 ms LVOT Peak Velocity 114.0 cm/s LVOT Peak Gradient 5.2 mmHg AV Area Cont Eq pk 2.2 cm MV Area PHT 4.6 cm Mitral E Point Velocity 68.6 cm/s Mitral A Point Velocity 81.9 cm/s Mitral E to A Ratio 0.8 LV E' Lateral Velocity 4.1 cm/s Mitral E to LV E' Lateral Ratio 16.8 LV E' Septal Velocity 4.8 cm/s Mitral E to LV E' Septal Ratio 14.4 TR Peak Velocity 153.0 cm/s TR Peak Gradient 9.4 mmHg PV Peak Velocity 110.0 cm/s PV Peak Gradient 4.8 mmHg FINDINGS LEFT VENTRICLE The left ventricular systolic function is normal with an estimated ejection fraction in the range of 55-60%. Normal left ventricular size. Wall thickness is normal. No regional wall motion abnormalities are present. RIGHT VENTRICLE Normal right ventricular size and systolic function. LEFT ATRIUM The left atrial size is normal. RIGHT ATRIUM The right atrial size is normal. ATRIAL SEPTUM Normal atrial septal thickness without atrial level shunting by limited color doppler interrogation. AORTA The aortic root and proximal ascending aorta are normal in size on limited imaging. MITRAL VALVE Structurally normal mitral valve. No mitral valve stenosis or regurgitation. AORTIC VALVE Trileaflet aortic valve. Aortic valve sclerosis is present. Moderate severe aortic valve regurgitation. TRICUSPID VALVE Structurally normal tricuspid valve. There is trace tricuspid valve regurgitation. Normal estimated pulmonary pressures. PULMONARY VALVE The pulmonary valve is not well visualized. VESSELS The inferior vena cava is normal in size. PERICARDIUM No pericardial effusion. Kehinde Bess MD, FACC (Electronically Signed) Final Date:27 July 2018 12:30
== END 2018-07-27 14:01 | disposition home or self-care (01) ==
LOC: PHEDA 00:24 → PHED 00:24 → PH3 05:06
PROVIDERS: ADMIT Hospitalist; ATTEND Hospitalist

== ENCOUNTER 2018-07-31 21:07 | Observation (INO) ==
--- NOTE | 2018-07-31 21:24 | ED ---
HPI General Chief complaint: Respiratory Symptoms Stated complaint: Evac/Respiratory Time Seen by Provider: 07/31/18 21:17 Source: patient Mode of arrival: EMS Limitations: no limitations History of Present Illness HPI narrative: The patient is a 77 year old female who presents to the [facility] emergency department with a history of reportedly not feeling well over the last several days due to pain in her legs from multiple myeloma. The patient reports that she has basically been residing in bed for comfort. She reports that family members have been assisting with her care. The patient reports that she last had chemotherapy on Monday. She reports that the chemotherapy is being discontinued by her oncologist in [place] due to difficulty tolerating it. She reports that she is on radiation therapy. She last had radiation therapy earlier today. The patient reports that prior to arrival around 7 PM she began to have sudden onset of shortness of breath. She denies having any associated chest pain. She denies having any cough or congestion. The patient reports that 4 years ago she did have a pulmonary embolism, however she has been on anticoagulation since then with Xarelto. She did take her Xarelto earlier today. She denies having any lower extremity edema , calf pain, or erythema. She denies having any known recent fevers. On review of systems otherwise, the patient denies having any neck pain, abdominal pain, vomiting, diarrhea, or neurologic symptoms. She does incidentally report having dysuria with urinary frequency a few days ago that resolved. Related Data Home Medications Medication Instructions Recorded Confirmed Mag 64 07/27/18 07/27/18 hydromorphone 2 mg PO Q6H PRN 07/27/18 07/27/18 oxycodone [OxyContin] 20 mg PO BID PRN 07/27/18 07/27/18 potassium chloride 10 meq PO BID 07/27/18 07/27/18 rivaroxaban [Xarelto] 20 mg PO DAILY 07/27/18 07/27/18 sennosides [Senna Lax] 8.6 mg PO BID PRN 07/27/18 07/27/18 valacyclovir 1,000 mg PO TID 07/27/18 07/27/18 Allergies Allergy/AdvReac Type Severity Reaction Status Date / Time latex Allergy Unknown RASH Verified 07/27/18 00:31 morphine Allergy Unknown COMA Verified 07/27/18 00:31 oxycodone Allergy Unknown COMA Verified 07/27/18 00:31 Review of Systems ROS: all other systems reviewed are negative [facility] Medical History Medical History Chronic pain (Acute) Pulmonary embolism (Resolved) Multiple myeloma (Chronic) Surgical History Surgical History History of stem cell transplant (Acute) Port-A-Cath in place (Acute) Family History Family History Mother History of breast cancer Father History of prostate cancer Social History Social History Substance History: No History of Abuse Second Hand Smoke Exposure: No Smoking Status: Never smoker How Often Do You Have a Drink Containing Alcohol: Never Recent Travel in [facility] within the Last 8 Weeks: No Recent Out of Country Travel within the Last 8 Weeks: No Exam Const General: cooperative, well developed and acute distress (Related to pain reportedly in bilateral lower extremities from her multiple myeloma.) mild Nutritional Appearance: well nourished Orientation: alert, awake and oriented x3 HENMT Head: normocephalic and atraumatic Nose: no nasal discharge and no epistaxis Mouth: moist mucous membranes Throat: posterior oropharynx normal and uvula midline Eyes Sclera: normal sclerae Pupils: PERRL Neck Neck: no meningeal signs, trachea midline and no JVD Resp Effort & Inspection: no use of accessory muscles Auscultation: clear to auscultation bilaterally Cardio Rate: tachycardic (Sinus tachycardia in the 120s-130s without any pulse deficits to the extremities on simultaneous auscultation and palpation of her radial artery) Rhythm: regular rhythm Heart Sounds: no murmurs GI Inspection: non-distended Palpation: soft, no hepatosplenomegaly and nontender Auscultation: normal bowel sounds Back/Spine/Pelvis Back: CVA tenderness (Right-sided CVA tenderness reported. No tenderness on the left.) Skin General: dry skin (warm) Neuro General: alert, awake and oriented x3 Cranial Nerves: CN's II-XI intact bilaterally Speech: speech normal Motor: strength 5/5 throughout and no movement abnormalities noted Sensory Exam: no sensory deficits noted Extrem General: normal to inspection (2+ pulses in all 4 extremities. No calf tenderness on palpation.), no clubbing, no cyanosis and no edema Psych Mood: congruent mood Affect: normal affect Judgment: judgment good Course Initial Documented Vital Signs Temperature 98.0 F 07/31/18 21:09 Pulse Rate 89 07/31/18 21:09 Respiratory Rate 19 07/31/18 21:09 Blood Pressure 144/74 H 07/31/18 21:09 Pulse Oximetry 98 07/31/18 21:09 Last Documented Vital Signs Temperature 97.8 F 08/01/18 01:46 Pulse Rate 111 H 08/01/18 01:46 Respiratory Rate 18 08/01/18 01:46 Blood Pressure 128/87 08/01/18 01:46 Pulse Oximetry 99 08/01/18 03:35 Medical Decision Making MDM Narrative Medical decision making narrative: During the course of the patient's emergency department visit, the patient's history, examination, and differential diagnosis were reviewed with the patient. The patient was placed on a web content & social media manager with oximetry and frequent blood pressure monitoring. The patient had IV access obtained and blood work sent for analysis. Diagnostic evaluation was started regarding the patient's sudden onset of shortness of breath. The patient was initially provided hydromorphone 0.2 mg IV, Zofran 4 mg IV, normal saline IV fluids. The patient's diagnostic studies are remarkable for a white count of 4.6, hemoglobin 10, platelets 146 with monocytes 43.1, INR is 1.8 , chemistry is remarkable for a sodium of 134, BUN 27, GFR of 75, AST 60, alk phos 507, CPK 198 , troponin I less than 0.02, total protein 6.2, BNP 25. The patient's electronic medical record was reviewed. The patient was admitted with similar symptoms recently and had a negative CTA for PE. She also had an echo done that showed some valvular abnormalities that were mild, normal ejection fraction, no pericardial effusion. On further questioning, the patient denies ever having a stress test or cardiac catheterization done. She denies any prior history of coronary artery disease. The patient is agreeable with the plan to proceed with admission for continued evaluation of shortness of breath due to undetermined cause, rule out with serial cardiac enzymes. The patient's results were discussed with the patient, including the plan of care. I explained that further testing and/ or monitoring is indicated based on the patient's history, examination, and/ or laboratory findings. Therefore, I recommended admission for additional evaluation. The patient expressed understanding and was agreeable with this plan. The patient was admitted to the hospital in stable condition and sent to a bed under the care of the [facility] service. Medical Screen Exam Complete: Yes Emergency Medical Condition: Yes Differential Diagnosis Differential Diagnosis: Pulmonary embolism, versus acute coronary syndrome, versus pneumothorax, versus pneumonia Medical Records Medical records reviewed: Yes I reviewed the patient's medical records. Lab Data Lab results reviewed: Yes I reviewed the patient's lab results. Result diagrams: 07/31/18 21:30 07/31/18 21:30 Lab Results 07/31/18 07/31/18 07/31/18 Range/Units 21:30 21:30 21:30 WBC 4.6 (4.0-11.0) th/mm3 RBC 3.14 L (4.00-5.30) mil/mm3 Hgb 10.0 L (11.6-15.3) gm/dL Hct 29.8 L (35.0-46.0) % MCV 94.9 (80.0-100.0) fL MCH 31.7 (27.0-34.0) pg MCHC 33.4 (32.0-36.0) % RDW 18.3 H (11.6-17.2) % Plt Count 146 L (150-450) th/mm3 MPV 8.2 (7.0-11.0) fL Prelim Diff (Auto) Slide review pending Neut % (Auto) 38.2 (16.0-70.0) % Lymph % (Auto) 18.1 (9.0-44.0) % Branch % (Auto) 43.1 H (0.0-8.0) % Eos % (Auto) 0.3 (0.0-4.0) % Baso % (Auto) 0.3 (0.0-2.0) % Neut # (Auto) 1.7 L (1.8-7.7) th/mm3 Lymph # (Auto) 0.8 L (1.0-4.8) th/mm3 Branch # (Auto) 2.0 H (0.0-0.9) th/mm3 Eos # (Auto) 0.0 (0.0-0.4) th/mm3 Baso # (Auto) 0.0 (0.0-0.2) th/mm3 WBC Differential Manual diff final Seg Neuts % (Manual) 42 (16-70) % Band Neuts % (Manual) 1 (0-6) % Lymphocytes % (Manual) 13 (9-44) % Monocytes % (Manual) 43 H (0-8) % Eosinophils % (Manual) 1 (0-4) % Abs Neuts (Manual) 2.0 (1.8-7.7) th/mm3 Differential Comment . Toxic Granulation 2+ H (None) Platelet Estimate Normal (Normal) Platelet Morphology Normal (Normal) Basophilic Stippling Faint H (None) Ovalocytes 1+ H (None) Acanthocytes (Spur) Occ H (None) PT 17.9 H (9.8-11.6) sec INR 1.8 Ratio APTT 32.1 H (24.3-30.1) sec Sodium 134 L (136-145) meq/L Potassium 4.7 (3.5-5.1) meq/L Chloride 100 (98-107) meq/L Carbon Dioxide 21.2 (21.0-32.0) meq/L Anion Gap 13 (5-15) meq/L BUN 27 H (7-18) mg/dL Creatinine 0.75 (0.50-1.00) mg/dL Estimated GFR 75 L (>89) mL/min Random Glucose 99 (74-106) mg/dL Calcium 9.0 (8.5-10.1) mg/dL Magnesium 1.9 (1.5-2.5) mg/dL Total Bilirubin 0.8 (0.2-1.0) mg/dL AST 60 H (15-37) U/L ALT 34 (10-53) U/L Alkaline Phosphatase 507 H (45-117) U/L Total Creatine Kinase 198 H (26-192) U/L CK-MB (CK-2) 1.6 (0.5-3.6) ng/mL CK-MB (CK-2) % 0.8 (0.0-4.0) % Troponin I Less than 0.02 L (0.02-0.05) ng/mL B-Natriuretic Peptide (0-100) pg/mL Total Protein 6.2 L D (6.4-8.2) g/dL Albumin 3.0 L (3.4-5.0) g/dL Urine Color (Yellw/Straw) Urine Clarity (Clear) Urine pH (5.0-8.5) Ur Specific [place] (1.002-1.035) Urine Protein (Neg-Trace) mg/dL Urine Glucose (UA) (Negative) mg/dL Urine Ketones (Negative) mg/dL Urine Occult Blood (Negative) Urine Nitrate (Negative) Urine Bilirubin (Negative) Urine Urobilinogen (Less than 2) mg/dL Ur Leukocyte Esterase (Negative) Urine WBC (0-5) /hpf Ur Squamous Epith Cells (0-5) /hpf Urine Bacteria (None) /hpf Hyaline Casts (0-3) /lpf Granular Casts (None) /lpf Micro UA Comment Ur Microscopic Review Urine Culture Comments 07/31/18 07/31/18 Range/Units 21:30 22:52 WBC (4.0-11.0) th/mm3 RBC (4.00-5.30) mil/mm3 Hgb (11.6-15.3) gm/dL Hct (35.0-46.0) % MCV (80.0-100.0) fL MCH (27.0-34.0) pg MCHC (32.0-36.0) % RDW (11.6-17.2) % Plt Count (150-450) th/mm3 MPV (7.0-11.0) fL Prelim Diff (Auto) Neut % (Auto) (16.0-70.0) % Lymph % (Auto) (9.0-44.0) % Branch % (Auto) (0.0-8.0) % Eos % (Auto) (0.0-4.0) % Baso % (Auto) (0.0-2.0) % Neut # (Auto) (1.8-7.7) th/mm3 Lymph # (Auto) (1.0-4.8) th/mm3 Branch # (Auto) (0.0-0.9) th/mm3 Eos # (Auto) (0.0-0.4) th/mm3 Baso # (Auto) (0.0-0.2) th/mm3 WBC Differential Seg Neuts % (Manual) (16-70) % Band Neuts % (Manual) (0-6) % Lymphocytes % (Manual) (9-44) % Monocytes % (Manual) (0-8) % Eosinophils % (Manual) (0-4) % Abs Neuts (Manual) (1.8-7.7) th/mm3 Differential Comment Toxic Granulation (None) Platelet Estimate (Normal) Platelet Morphology (Normal) Basophilic Stippling (None) Ovalocytes (None) Acanthocytes (Spur) (None) PT (9.8-11.6) sec INR Ratio APTT (24.3-30.1) sec Sodium (136-145) meq/L Potassium (3.5-5.1) meq/L Chloride (98-107) meq/L Carbon Dioxide (21.0-32.0) meq/L Anion Gap (5-15) meq/L BUN (7-18) mg/dL Creatinine (0.50-1.00) mg/dL Estimated GFR (>89) mL/min Random Glucose (74-106) mg/dL Calcium (8.5-10.1) mg/dL Magnesium (1.5-2.5) mg/dL Total Bilirubin (0.2-1.0) mg/dL AST (15-37) U/L ALT (10-53) U/L Alkaline Phosphatase (45-117) U/L Total Creatine Kinase (26-192) U/L CK-MB (CK-2) (0.5-3.6) ng/mL CK-MB (CK-2) % (0.0-4.0) % Troponin I (0.02-0.05) ng/mL B-Natriuretic Peptide 25 (0-100) pg/mL Total Protein (6.4-8.2) g/dL Albumin (3.4-5.0) g/dL Urine Color Yellow (Yellw/Straw) Urine Clarity Cloudy H (Clear) Urine pH 5.0 (5.0-8.5) Ur Specific [place] 1.017 (1.002-1.035) Urine Protein Negative (Neg-Trace) mg/dL Urine Glucose (UA) Negative (Negative) mg/dL Urine Ketones 20 (Negative) mg/dL Urine Occult Blood Small H (Negative) Urine Nitrate Positive H (Negative) Urine Bilirubin Negative (Negative) Urine Urobilinogen Less than 2 (Less than 2) mg/dL Ur Leukocyte Esterase Trace H (Negative) Urine WBC 5 (0-5) /hpf Ur Squamous Epith Cells 12 (0-5) /hpf Urine Bacteria Many H (None) /hpf Hyaline Casts 5 (0-3) /lpf Granular Casts 5 (None) /lpf Micro UA Comment Culture indicated Ur Microscopic Review Not Reportable Urine Culture Comments Culture indicated Imaging Data Radiologist's impression: Chest X-Ray 07/31/18 21:28 CONCLUSION: No evidence of acute cardiopulmonary disease. Right IJ [id number] catheter again noted. Moderate to large hiatal hernia again seen. ECG Data Attestation: I personally reviewed and interpreted this ECG as follows: Interpretation: The patient had an EKG done on arrival that shows a sinus tachycardia rate of 123, QRS duration is 72 ms, QTC [address] segment elevation T waves are inverted in V1. Discharge Plan Discharge Disposition Patient Disposition: 30 Still Patient Discharge Details Diagnosis: Shortness of breath at rest Physicians Team ED Provider: Lizzy Hartley Primary Care Provider: NON STAFF,PROVIDER Attending Provider: Cassidy Camara Discharge Interventions Interventions: ED Discharge Assessment Last Done: 08/01/18 01:53 Status ED Status: Left Department Discharge Information Discharge Date/Time: 08/01/18 01:54
[2018-07-31] MEDS ORDERED: Sodium Chlor 0.9% Inj 500 ML IV.SIG ONE (21:28)
[2018-07-31] MEDS ORDERED: HYDROmorphone PF Inj 0.5 MG/0.5 ML Syringe IV.PUSH ONE (21:28)
[2018-07-31 21:48] LABS: Baso % (Auto) 0.3 % (0.0-2.0); Eos % (Auto) 0.3 % (0.0-4.0); Hematocrit 29.8 % (35.0-46.0); Lymph # (Auto) 0.8 th/mm3 (1.0-4.8); Lymph % (Auto) 18.1 % (9.0-44.0); Mean Corpuscular HGB Conc 33.4 % (32.0-36.0); Mean Corpuscular Hemoglobin 31.7 pg (27.0-34.0); Mean Corpuscular Volume 94.9 fL (80.0-100.0); Mean Platelet Volume 8.2 fL (7.0-11.0); Mono % (Auto) 43.1 % (0.0-8.0); Neut # (Auto) 1.7 th/mm3 (1.8-7.7); Neut % (Auto) 38.2 % (16.0-70.0); Platelet Count 146 th/mm3 (150-450); Red Blood Count 3.14 mil/mm3 (4.00-5.30); Red Cell Distribution Width 18.3 % (11.6-17.2); White Blood Count 4.6 th/mm3 (4.0-11.0)
[2018-07-31 22:07] LABS: Activated Partial Thrombo Time 32.1 sec (24.3-30.1); INR 1.8 Ratio; Prothrombin Time 17.9 sec (9.8-11.6)
--- NOTE | 2018-07-31 22:07 | XR ---
EXAM DATE: 07/31/2018 9:48 PM EDT AGE/SEX: 77 years / Female INDICATIONS: Chest pain. CLINICAL DATA: This is the patient's initial encounter. Patient reports that signs and symptoms have been present for 1 day and indicates a pain score of 5/10. MEDICAL/SURGICAL HISTORY: . Multiple myeloma. . Port placement COMPARISON: [facility], CTA PULMONARY W CONTRAST W 3D, 07/27/2018. [facility], CHEST 1V SINGLE AP, 07/27/2018. . FINDINGS: A single AP view of the chest demonstrates the lungs to be symmetrically aerated without evidence of mass, infiltrate or effusion. The cardiomediastinal contours are unremarkable. Osseous structures a re intact. Moderate to large hiatal hernia again noted. There is a right internal jugular Gsydhv-[id number]-Hxfq catheter again seen with tip at the atriocaval juncti on. CONCLUSION: No evidence of acute cardiopulmonary disease. Right IJ Onvcze-i-Yxux catheter again noted. Moderate to large hiatal hernia again seen. Electronically signed by: Moises Rowan MD 07/31/2018 10:06 PM EDT
[2018-07-31 22:10] LABS: Alanine Aminotransferase 34 U/L (10-53); Anion Gap 13 meq/L (5-15); Aspartate Aminotransferase 60 U/L (15-37); Blood Urea Nitrogen 27 mg/dL (7-18); Carbon Dioxide 21.2 meq/L (21.0-32.0); Chloride 100 meq/L (98-107); Glomerular Filtration Rate 75 mL/min (>89); Glucose,Random 99 mg/dL (74-106); Magnesium 1.9 mg/dL (1.5-2.5); Potassium 4.7 meq/L (3.5-5.1); Sodium 134 meq/L (136-145)
[2018-07-31 22:15] LABS: Alkaline Phosphatase 507 U/L (45-117); Creatine Kinase 198 U/L (26-192); Total Protein 6.2 g/dL (6.4-8.2)
[2018-07-31 22:27] LABS: CKMB Percent 0.8 % (0.0-4.0); Creatine Kinase MB 1.6 ng/mL (0.5-3.6)
[2018-07-31 22:31] LABS: Eosinophils 1 % (0-4); Lymphocytes 13 % (9-44); Monocytes 43 % (0-8)
[2018-07-31 22:32] LABS: Platelet Estimate Normal (Normal); Platelet Morphology Normal (Normal); Toxic Granulation 2+
[2018-07-31 22:33] LABS: Acanthocytes Occ; Ovalocytes 1+
[2018-07-31 23:27] LABS: Bacteria,Urine Many /hpf; Bilirubin,Urine Negative (Negative); Clarity,Urine Cloudy (Clear); Color,Urine Yellow (Yellw/Straw); Glucose,Urine (UA) Negative (Negative); Hyaline Casts,Urine 5 /lpf (0-3); Leukocyte Esterase,Urine Trace (Negative); Nitrite,Urine Positive (Negative); Specific Gravity,Urine 1.017 (1.002-1.035); Squamous Epithelial Cell,Urine 12 /hpf (0-5)
[2018-08-01] MEDS ORDERED: Acetaminophen 325 MG Tablet PO PRN (00:43)
[2018-08-01] MEDS ORDERED: Bisacodyl 10 MG Supp RECTAL PRN (00:43)
--- NOTE | 2018-08-01 00:54 | P.HP ---
History of Present Illness Service: [facility] Primary Care Physician: PROVIDER NON STAFF History of Present Illness: 77-year-old female with a past medical history of multiple myeloma, chronic pain and previous PE anticoagulated on Xarelto presents to the emergency department for sudden onset shortness of breath. The patient reports that at approximately 7 PM she suddenly had difficulty breathing. She had similar symptoms on 07/27 and was seen in [facility] for evaluation. Workup at that time including CT pulmonary angiogram and echocardiogram was negative. The patient has been tachycardic since her arrival to the emergency department however has never been hypoxic. She states that her breathing is slightly improved from the time that she arrived. She denies any chest pain. No abdominal pain. No nausea/vomiting/diarrhea. Endorses bilateral lower extremity pain which is chronic. No lateralizing signs/symptoms. Review of Systems All other systems reviewed negative except as stated in [facility] - History History Provided By: Patient - Medical History Medical History: Medical History (Last Reviewed 08/01/18 @ 00:50 by Cassidy Camara MD) Chronic pain (Acute) Pulmonary embolism (Resolved) Multiple myeloma (Chronic) - Surgical History Surgical History: Surgical History (Last Reviewed 08/01/18 @ 00:50 by Cassidy Camara MD) History of stem cell transplant (Acute) Port-A-Cath in place (Acute) - Family History Family History: Family History (Last Reviewed 08/01/18 @ 00:50 by Cassidy Camara MD) Mother History of breast cancer Father History of prostate cancer - Tobacco History Second Hand Smoke Exposure: No Smoking Status: Never smoker - Alcohol History How Often Do You Have a Drink Containing Alcohol: Never - Substance Use History Substance History: No History of Abuse - Travel History Recent Travel in the [place] Within the Last 8 Weeks: No Recent Travel Out of the Country Within the Last 8 Weeks: No - Immunization History Tetanus Immunization: <5 Years Hx Influenza Vaccine This Season: No Medications and Allergies Active Medications: Active Medications Acetaminophen (Tylenol) 650 mg PO Q4H PRN PRN Reason: Temp > 100.4 Al Hydroxide/Mg Hydroxide (Milk Of Magnesia Liq) 30 ml PO Q12H PRN PRN Reason: Mild Constipation Bisacodyl (Dulcolax Supp) 10 mg RECTAL DAILY PRN PRN Reason: SEVERE CONSITIPATION Lactulose (Lactulose Liq) 30 ml PO DAILY PRN PRN Reason: SEVERE CONSITIPATION Ondansetron HCl (Zofran Inj) 4 mg IV.PUSH Q6H PRN PRN Reason: NAUSEA OR VOMITING Oxycodone HCl (Oxycontin Cr) 20 mg PO BID PRN PRN Reason: Acute Pain Rivaroxaban (Xarelto) 20 mg PO DAILY PAUL Sodium Chloride (Ns Flush) 2 ml IV.FLUSH UNSCH PRN PRN Reason: FLUSH AFTER USING IV ACCESS Allergies Allergy/AdvReac Type Severity Reaction Status Date / Time latex Allergy Unknown RASH Verified 07/27/18 00:31 morphine Allergy Unknown COMA Verified 07/27/18 00:31 oxycodone Allergy Unknown COMA Verified 07/27/18 00:31 Home Medications Medication Instructions Recorded Confirmed Type Mag 64 07/27/18 07/27/18 History hydromorphone 2 mg PO Q6H PRN 07/27/18 07/27/18 History oxycodone [OxyContin] 20 mg PO BID PRN 07/27/18 07/27/18 History potassium chloride 10 meq PO BID 07/27/18 07/27/18 History rivaroxaban [Xarelto] 20 mg PO DAILY 07/27/18 07/27/18 History sennosides [Senna Lax] 8.6 mg PO BID PRN 07/27/18 07/27/18 History valacyclovir 1,000 mg PO TID 07/27/18 07/27/18 History Exam Vital signs: Vital Signs 07/31/18 21:09 07/31/18 21:28 07/31/18 21:30 Temperature 98.0 F Pulse Rate 89 103 H Respiratory Rate 19 Blood Pressure 144/74 H Pulse Oximetry 98 98 07/31/18 22:00 07/31/18 22:10 07/31/18 23:12 Temperature Pulse Rate 112 H 116 H Respiratory Rate 18 20 Blood Pressure 132/60 123/61 Pulse Oximetry 100 100 08/01/18 00:15 Temperature Pulse Rate 118 H Respiratory Rate 20 Blood Pressure 133/63 Pulse Oximetry 98 Intake & Output 07/31/18 07/31/18 08/01/18 06:59 18:59 06:59 Intake Total 600 / 600 Balance 600 / 600 Weight 54.431 kg Intake: IV 600 / 600 NS Inj 500 ML @ Wide Open IV. 500 / 500 SIG BOLUS ONE Rx#:[id number] Rocephin Inj 1,000 MG In NS Inj 100 / 100 100 ML @ 200 mls/hr IV.SIG ONCE ONE Rx#:[id number] Narrative: Gen.: No acute distress Head: Normocephalic. Atraumatic. EENT: Pupils equal round and reactive to light. Nose without drainage. Airway intact. Throat without injection. Cardiovascular: Tachycardic. Regular rhythm. No murmurs, rubs or gallops. Respiratory: Lungs clear to auscultation bilaterally. No wheezes or rhonchi. Abdomen: Soft, nontender, nondistended. No peritoneal signs. Musculoskeletal: No gross deformities. No edema. Skin: No obvious rashes or erythema. Neuro: Sensory and motor grossly intact. Cranial nerves II through XII grossly intact. Results - Labs CBC & Chem 7: 07/31/18 21:30 07/31/18 21:30 Labs: Laboratory Results - last 24 hr 07/31/18 07/31/18 07/31/18 21:30 21:30 21:30 WBC 4.6 RBC 3.14 L Hgb 10.0 L Hct 29.8 L MCV 94.9 MCH 31.7 MCHC 33.4 RDW 18.3 H Plt Count 146 L MPV 8.2 Prelim Diff (Auto) Slide review pending Neut % (Auto) 38.2 Lymph % (Auto) 18.1 [place] % (Auto) 43.1 H Eos % (Auto) 0.3 Baso % (Auto) 0.3 Neut # (Auto) 1.7 L Lymph # (Auto) 0.8 L [place] # (Auto) 2.0 H Eos # (Auto) 0.0 Baso # (Auto) 0.0 WBC Differential Manual diff final Seg Neuts % (Manual) 42 Band Neuts % (Manual) 1 Lymphocytes % (Manual) 13 Monocytes % (Manual) 43 H Eosinophils % (Manual) 1 Abs Neuts (Manual) 2.0 Differential Comment . Toxic Granulation 2+ H Platelet Estimate Normal Platelet Morphology Normal Basophilic Stippling Faint H Ovalocytes 1+ H Acanthocytes (Spur) Occ H PT 17.9 H INR 1.8 APTT 32.1 H Sodium 134 L Potassium 4.7 Chloride 100 Carbon Dioxide 21.2 Anion Gap 13 BUN 27 H Creatinine 0.75 Estimated GFR 75 L Random Glucose 99 Calcium 9.0 Magnesium 1.9 Total Bilirubin 0.8 AST 60 H ALT 34 Alkaline Phosphatase 507 H Total Creatine Kinase 198 H CK-MB (CK-2) 1.6 CK-MB (CK-2) % 0.8 Troponin I Less than 0.02 L B-Natriuretic Peptide Total Protein 6.2 L D Albumin 3.0 L Urine Color Urine Clarity Urine pH Ur Specific [place] Urine Protein Urine Glucose (UA) Urine Ketones Urine Occult Blood Urine Nitrate Urine Bilirubin Urine Urobilinogen Ur Leukocyte Esterase Urine WBC Ur Squamous Epith Cells Urine Bacteria Hyaline Casts Granular Casts Micro UA Comment Ur Microscopic Review Urine Culture Comments 07/31/18 07/31/18 21:30 22:52 WBC RBC Hgb Hct MCV MCH MCHC RDW Plt Count MPV Prelim Diff (Auto) Neut % (Auto) Lymph % (Auto) [place] % (Auto) Eos % (Auto) Baso % (Auto) Neut # (Auto) Lymph # (Auto) [place] # (Auto) Eos # (Auto) Baso # (Auto) WBC Differential Seg Neuts % (Manual) Band Neuts % (Manual) Lymphocytes % (Manual) Monocytes % (Manual) Eosinophils % (Manual) Abs Neuts (Manual) Differential Comment Toxic Granulation Platelet Estimate Platelet Morphology Basophilic Stippling Ovalocytes Acanthocytes (Spur) PT INR APTT Sodium Potassium Chloride Carbon Dioxide Anion Gap BUN Creatinine Estimated GFR Random Glucose Calcium Magnesium Total Bilirubin AST ALT Alkaline Phosphatase Total Creatine Kinase CK-MB (CK-2) CK-MB (CK-2) % Troponin I B-Natriuretic Peptide 25 Total Protein Albumin Urine Color Yellow Urine Clarity Cloudy H Urine pH 5.0 Ur Specific [place] 1.017 Urine Protein Negative Urine Glucose (UA) Negative Urine Ketones 20 Urine Occult Blood Small H Urine Nitrate Positive H Urine Bilirubin Negative Urine Urobilinogen Less than 2 Ur Leukocyte Esterase Trace H Urine WBC 5 Ur Squamous Epith Cells 12 Urine Bacteria Many H Hyaline Casts 5 Granular Casts 5 Micro UA Comment Culture indicated Ur Microscopic Review Not Reportable Urine Culture Comments Culture indicated - Imaging Impressions Chest X-Ray 07/31/18 21:28 CONCLUSION: No evidence of acute cardiopulmonary disease. Right IJ [id number] catheter again noted. Moderate to large hiatal hernia again seen. Caprini VTE Risk Assessment Caprini VTE Risk Assessment: Moderate/High Risk (score >= 2) Caprini Risk Assessment Model: Point Value = 1 Point Value = 2 Point Value = 3 Point Value = 5 Age 41-60 Minor surgery BMI > 25 kg/m2 Swollen legs Varicose veins or History of unexplained or recurrent spontaneous Oral contraceptives or hormone replacement Sepsis (< 1 month) Serious lung disease, including pneumonia (< 1 month) Abnormal pulmonary function Acute myocardial infarction Congestive heart failure (< 1 month) History of inflammatory bowel disease Medical patient at bed rest Age 61-74 Arthroscopic surgery Major open surgery (> 45 min) Laparoscopic surgery (> 45 min) Malignancy Confined to bed (> 72 hours) Immobilizing plaster cast Central venous access Age >= 75 History of VTE Family history of VTE Factor V Leiden Prothrombin [id number] Lupus anticoagulant Anticardiolipin antibodies Elevated serum homocysteine Heparin-induced thrombocytopenia Other congenital or acquired thrombophilia Stroke (< 1 month) Elective arthroplasty Hip, pelvis, or leg fracture Acute spinal cord injury (< 1 month) Prophylaxis Regimen: Total Risk Factor Score Risk Level Prophylaxis Regimen 0-1 Low Early ambulation 2 Moderate Order ONE of the following: *Sequential Compression Device (SCD) *Heparin 5000 units SQ BID 3-4 Higher Order ONE of the following medications: *Heparin 5000 units SQ TID *Enoxaparin/Lovenox 40 mg SQ daily (WT < 150 kg, CrCl > 30 mL/min) *Enoxaparin/Lovenox 30 mg SQ daily (WT < 150 kg, CrCl > 10-29 mL/min) *Enoxaparin/Lovenox 30 mg SQ BID (WT < 150 kg, CrCl > 30 mL/min) AND/OR *Sequential Compression Device (SCD) 5 or more Highest Order ONE of the following medications: *Heparin 5000 units SQ TID (Preferred with Epidurals) *Enoxaparin/Lovenox 40 mg SQ daily (WT < 150 kg, CrCl > 30 mL/min) *Enoxaparin/Lovenox 30 mg SQ daily (WT < 150 kg, CrCl > 10-29 mL/min) *Enoxaparin/Lovenox 30 mg SQ BID (WT < 150 kg, CrCl > 30 mL/min) AND *Sequential Compression Device (SCD) Assessment and Plan - Plan Assessment/plan: 1. Shortness of breath Unclear etiology Chest CTA and echocardiogram done on 07/27/18 within normal limits No associated hypoxia Possible cardiac involvement although patient denies chest pain ACS rule out pending Likely related to patient's multiple myeloma and radiation/chemotherapy 2. History of PE Continue Xarelto 3. Chronic pain Continue home Dilaudid and oxycodone FEN Regular diet Electrolytes: Monitor and replete as needed Xarelto
[2018-08-01] MEDS ORDERED: Heparin Central Flush 100 UNIT/ML 5 ML Vial IV.FLUSH PRN ×2 (02:55)
[2018-08-01 04:00] LABS: Creatine Kinase 119 U/L (26-192)
[2018-08-01] MEDS: oxyCODONE HCL 20 MG Controlled Release Tablet PO PRN (05:35)
[2018-08-01] MEDS: valACYclovir 500 MG Tab PO SCH ×3 (05:35→22:02)
[2018-08-01] MEDS: Senna/Docusate Sodium 8.6/50 MG Tablet PO SCH ×2 (08:36→22:02)
--- NOTE | 2018-08-01 11:41 | ECG ---
Date Performed: 07/31/2018 Time Performed: 21:16:09 PTAGE: 77 years EKG: SINUS TACHYCARDIA INFERIOR MYOCARDIAL INFARCTION ABNORMAL ECG PREVIOUS TRACING : 05/01/2018 09.50 DOCTOR: Kehinde Bess Interpretating Date/Time 08/01/2018 11:40:53
[2018-08-01 12:47] LABS: Creatine Kinase 91 U/L (26-192)
--- NOTE | 2018-08-01 14:12 | P.PNADD ---
Addendum to Inpatient Note Additional information: Patient seen/examined. Patient was admitted due to sudden onset of dyspnea yesterday around 7 PM. Patient was evaluated on 07/27/2018 and underwent echocardiogram as well as CT PE study which did not show any evidence of PE. Patient follows up with an oncologist at [facility] with regards to her multiple myeloma. She is currently on room air. She is somewhat tachycardic. I discussed at length with patient and her . I will try to get in touch with patient's oncologist at [facility] to further discuss her dyspnea.
[2018-08-01] MEDS: Rivaroxaban 20 MG Tablet PO SCH (17:36)
[2018-08-02 05:37] LABS: Baso % (Auto) 0.1 % (0.0-2.0); Eos % (Auto) 1.1 % (0.0-4.0); Hematocrit 22.2 % (35.0-46.0); Hemoglobin 7.5 gm/dL (11.6-15.3); Lymph # (Auto) 0.3 th/mm3 (1.0-4.8); Mean Corpuscular Hemoglobin 32.1 pg (27.0-34.0); Mean Corpuscular Volume 94.3 fL (80.0-100.0); Mono # (Auto) 1.6 th/mm3 (0.0-0.9); Mono % (Auto) 45.7 % (0.0-8.0); Neut # (Auto) 1.6 th/mm3 (1.8-7.7); Neut % (Auto) 45.1 % (16.0-70.0); Platelet Count 155 th/mm3 (150-450); Red Blood Count 2.35 mil/mm3 (4.00-5.30); Red Cell Distribution Width 17.8 % (11.6-17.2); White Blood Count 3.5 th/mm3 (4.0-11.0)
[2018-08-02] MEDS: valACYclovir 500 MG Tab PO SCH ×3 (05:48→21:25)
[2018-08-02 06:08] LABS: Anion Gap 11 meq/L (5-15); Blood Urea Nitrogen 16 mg/dL (7-18); Calcium 7.8 mg/dL (8.5-10.1); Carbon Dioxide 22.5 meq/L (21.0-32.0); Chloride 105 meq/L (98-107); Glomerular Filtration Rate Greater Than 89 mL/min (>89); Glucose,Random 99 mg/dL (74-106); Sodium 138 meq/L (136-145)
[2018-08-02] MEDS: Senna/Docusate Sodium 8.6/50 MG Tablet PO SCH ×2 (08:02→21:25)
--- NOTE | 2018-08-02 08:02 | P.PN ---
Subjective Interval history: Follow up for acute onset of dyspnea. Patient is doing well. Denies any chest pain, shortness of breath, fever, chills. Her BP is low. No bleeding. Physical Exam Vital signs: Vital Signs 08/01/18 08:31 08/01/18 11:00 08/01/18 12:00 Temperature 98.0 F 98.3 F Pulse Rate 115 H 112 H 106 H Respiratory Rate 18 18 Blood Pressure 117/49 L 114/60 Pulse Oximetry 100 98 08/01/18 15:00 08/01/18 16:00 08/01/18 17:06 Temperature 98.2 F Pulse Rate 106 H 113 H Respiratory Rate 16 Blood Pressure 108/60 Pulse Oximetry 98 100 08/01/18 20:00 08/02/18 00:00 08/02/18 04:00 Temperature 98.8 F 98.4 F 98.1 F Pulse Rate 111 H 115 H 105 H Respiratory Rate 18 Blood Pressure 124/57 L 94/44 L Pulse Oximetry 100 98 Intake & Output 08/01/18 08/02/18 08/02/18 18:59 06:59 18:59 Intake Total 1450 / 1450 220 / 220 Output Total 375 / 375 600 / 600 Balance 1075 / 1075 -380 / -380 Weight 53.1 kg Intake: Oral 1450 / 1450 220 / 220 Output: Urine 375 / 375 600 / 600 Other: Date of Last Bowel Movement 07/30/18 Narrative: GENERAL: Alert, oriented x 3, NAD. On room air. SKIN: Warm and dry. HEAD: Normocephalic. EYES: No scleral icterus. No injection or drainage. NECK: Supple, trachea midline. No JVD or lymphadenopathy. CARDIOVASCULAR: Regular rhythm, tachycardic without murmurs, gallops, or rubs. RESPIRATORY: Breath sounds equal bilaterally. No accessory muscle use. GASTROINTESTINAL: Abdomen soft, non-tender, nondistended. MUSCULOSKELETAL: No cyanosis, or edema. BACK: Nontender without obvious deformity. No CVA tenderness. Results - Labs CBC & Chem 7: 08/02/18 05:00 08/02/18 05:00 Laboratory Results - last 24 hr 07/31/18 08/01/18 08/02/18 22:52 11:00 05:00 WBC 3.5 L RBC 2.35 L Hgb 7.5 L D Hct 22.2 L MCV 94.3 MCH 32.1 MCHC 34.0 RDW 17.8 H Plt Count 155 MPV 7.0 Neut % (Auto) 45.1 Lymph % (Auto) 8.0 L [place] % (Auto) 45.7 H Eos % (Auto) 1.1 Baso % (Auto) 0.1 Neut # (Auto) 1.6 L Lymph # (Auto) 0.3 L [place] # (Auto) 1.6 H Eos # (Auto) 0.0 Baso # (Auto) 0.0 WBC Differential . Differential Comment Auto diff final Sodium Potassium Chloride Carbon Dioxide Anion Gap BUN Creatinine Estimated GFR Random Glucose Calcium Total Creatine Kinase 91 Troponin I Less than 0.02 L Urine Color Yellow Urine Clarity Cloudy H Urine pH 5.0 Ur Specific [place] 1.017 Urine Protein Negative Urine Glucose (UA) Negative Urine Ketones 20 Urine Occult Blood Small H Urine Nitrate Positive H Urine Bilirubin Negative Urine Urobilinogen Less than 2 Ur Leukocyte Esterase Trace H Urine WBC 5 Ur Squamous Epith Cells 12 Urine Bacteria Many H Hyaline Casts 5 Granular Casts 5 Micro UA Comment Culture indicated Urine Culture Comments Culture indicated 08/02/18 05:00 WBC RBC Hgb Hct MCV MCH MCHC RDW Plt Count MPV Neut % (Auto) Lymph % (Auto) [place] % (Auto) Eos % (Auto) Baso % (Auto) Neut # (Auto) Lymph # (Auto) [place] # (Auto) Eos # (Auto) Baso # (Auto) WBC Differential Differential Comment Sodium 138 Potassium 4.0 Chloride 105 Carbon Dioxide 22.5 Anion Gap 11 BUN 16 Creatinine 0.45 L Estimated GFR Greater than 89 Random Glucose 99 Calcium 7.8 L D Total Creatine Kinase Troponin I Urine Color Urine Clarity Urine pH Ur Specific [place] Urine Protein Urine Glucose (UA) Urine Ketones Urine Occult Blood Urine Nitrate Urine Bilirubin Urine Urobilinogen Ur Leukocyte Esterase Urine WBC Ur Squamous Epith Cells Urine Bacteria Hyaline Casts Granular Casts Micro UA Comment Urine Culture Comments Microbiology 07/31/18 22:52 Clean Catch Urine Urine Culture - Preliminary gram negative rods - Imaging Chest X-Ray 07/31/18 21:28 CONCLUSION: No evidence of acute cardiopulmonary disease. Right IJ [id number] catheter again noted. Moderate to large hiatal hernia again seen. Assessment and Plan - Plan On 08/01/2018, Ms. SullivanAyers - a 77-year-old female with a past medical history of multiple myeloma, chronic pain and previous PE anticoagulated on Xarelto presented to the emergency department for sudden onset shortness of breath. Patient recently underwent CT PE study as well as echocardiogram both of which were negative for any acute findings. No pulmonary embolism was noted. Patient is currently on Xarelto due to PE about 4 years ago. Acute dyspnea -Etiology unknown. I discussed with patient's oncologist from [facility] who recommended stopping Panobinostat. -Patient is currently on room air. Normocytic normochromic anemia -Likely due to chronic medical illnesses -Hemoglobin dropped from 10--> 7.5 today. Will recheck H&H -If H&H still low, we will do further work up. Hypotension - Due to low BP (MAP 60), we will give her a small bolus 500cc NS. - Recheck BP later today. History of PE History of Multiple Myeloma - Probably end stage MM. Oncologist will discuss with patient further plan at their follow up appointment. Full code. Xarelto.
[2018-08-02] MEDS ORDERED: Sodium Chlor 0.9% Inj 500 ML IV.SIG SCH (09:00)
[2018-08-02] MEDS ORDERED: Metoprolol Tartrate 25 MG Tablet PO SCH (09:00)
[2018-08-02 12:14] LABS: Hematocrit 24.6 % (35.0-46.0); Hemoglobin 8.2 gm/dL (11.6-15.3)
[2018-08-02] MEDS: oxyCODONE HCL 20 MG Controlled Release Tablet PO PRN (13:00)
[2018-08-02] MEDS ORDERED: Cathflo Activase Inj 2 MG Vial I-CATHETER PRN (13:49)
[2018-08-02] MEDS: Rivaroxaban 20 MG Tablet PO SCH (17:03)
[2018-08-03] MEDS: valACYclovir 500 MG Tab PO SCH (05:38)
[2018-08-03] MEDS: oxyCODONE HCL 20 MG Controlled Release Tablet PO PRN (05:38)
[2018-08-03] MEDS: Senna/Docusate Sodium 8.6/50 MG Tablet PO SCH (08:33)
--- NOTE | 2018-08-03 08:39 | P.DCO ---
- Physical Therapy Order: Evaluate and treat, Improve ambulation, Strength and gait training - Occupational Therapy Order: Evaluate and treat, Improve ADL, Gross motor coordination, Fine motor coordination - Home Health Nursing Order: Medical education, Signs/symptoms of disease process, Medication education-adverse effect, Nursing assessment with vital signs - Certification I have seen patient Yarely Puente on 08/03/18. My clinical findings support the need for the requested home health care services because: Limited mobility due to disease progression, Patient has SOB, Deconditioned with increased weakness, Need for psychosocial assistance, Impaired cognition/ judgement, High risk of falls, Infection with risk of complications I certify that my clinical findings support that this patient is homebound because: Unsteady gait/balance, Unsafe to leave home unassisted, Unable to use public transportation
--- NOTE | 2018-08-03 08:47 | P.DS ---
Date of admission: 08/01/18 00:02 Primary care physician: PROVIDER NON STAFF Brief History from admission: 77-year-old female with a past medical history of multiple myeloma, chronic pain and previous PE anticoagulated on Xarelto presents to the emergency department for sudden onset shortness of breath. The patient reports that at approximately 7 PM she suddenly had difficulty breathing. She had similar symptoms on 07/27 and was seen in [facility] for evaluation. Workup at that time including CT pulmonary angiogram and echocardiogram was negative. The patient has been tachycardic since her arrival to the emergency department however has never been hypoxic. She states that her breathing is slightly improved from the time that she arrived. She denies any chest pain. No abdominal pain. No nausea/vomiting/diarrhea. Endorses bilateral lower extremity pain which is chronic. No lateralizing signs/symptoms. DS: Diagnosis - Discharge Diagnosis (1) Shortness of breath Status: Acute (2) Pulmonary embolism Status: Resolved (3) Multiple myeloma Status: Chronic DS: Summary Hospital Course: On 08/01/2018, Ms. Puente - a 77-year-old female with a past medical history of multiple myeloma, chronic pain and previous PE anticoagulated on Xarelto presented to the emergency department for sudden onset shortness of breath. Patient recently underwent CT PE study as well as echocardiogram both of which were negative for any acute findings. No pulmonary embolism was noted. Patient is currently on Xarelto due to PE about 4 years ago. Acute dyspnea -Etiology unknown. I discussed with patient's oncologist from [facility] who recommended stopping Panobinostat. -Patient is currently on room air. Normocytic normochromic anemia -Likely due to chronic medical illnesses -Hemoglobin dropped from 10--> 8.2. No acute blood loss. History of PE History of Multiple Myeloma - Probably end stage MM. Oncologist will discuss with patient further plan at their follow up appointment. Full code. Xarelto. - Time Spent with Patient Total time spent providing and/or coordinating discharge services: Less than 30 minutes - Quality: VTE Deep Vein Thrombosis/Pulmonary Embolism Present on Admission: No Exam Vital signs: Vital Signs 08/02/18 16:00 08/02/18 19:20 08/02/18 19:39 Temperature 99 F Pulse Rate 105 H 104 H Respiratory Rate 18 Blood Pressure 113/53 L Pulse Oximetry 99 95 08/02/18 20:00 08/02/18 23:11 08/03/18 00:08 Temperature 98.2 F Pulse Rate 104 H 99 H Respiratory Rate 18 16 Blood Pressure 95/45 L Pulse Oximetry 97 08/03/18 00:45 08/03/18 04:03 08/03/18 04:10 Temperature 99 F 98.6 F Pulse Rate 100 H 108 H 103 H Respiratory Rate 16 18 Blood Pressure 102/51 L 101/45 L Pulse Oximetry 98 97 08/03/18 06:08 08/03/18 07:24 08/03/18 07:56 Temperature Pulse Rate 98 H Respiratory Rate 18 18 Blood Pressure Pulse Oximetry Intake & Output 08/02/18 08/03/18 08/03/18 18:59 06:59 18:59 Intake Total 970 / 970 120 / 120 Output Total 200 / 200 Balance 770 / 770 120 / 120 Weight 54 kg Intake: Oral 970 / 970 120 / 120 Output: Urine 200 / 200 Other: # Voids 2 2 # Incontinent Voids 1 Date of Last Bowel Movement 07/30/18 08/02/18 # Bowel Movements 1 Results Procedures completed during hospitalization: None. Labs on day of discharge: Labs from last 24 hours 08/02/18 12:00 Hgb 8.2 L Hct 24.6 L - Impressions ITS Impressions Chest X-Ray 07/31/18 21:28 CONCLUSION: No evidence of acute cardiopulmonary disease. Right IJ [id number] catheter again noted. Moderate to large hiatal hernia again seen. Discharge Plan - Discharge Disposition Patient Disposition: /Home Health Service - Discharge Condition Condition: Fair - Discharge Order Discharge Orders: Discharge Order (Routine); Ordered 08/03/18 Ordered By: Shyla Krishnamurthy - Discharge Details Anticipated Discharge Date: 08/03/18 - Physicians Team Primary Care Provider: NON STAFF,PROVIDER Attending Provider: Shyla Krishnamurthy
[2018-08-03 09:28] VITALS: RESP 20
[2018-08-03 09:30] VITALS: BP 100/53; PULSE 107; TEMP 98.2; O2SAT 98
== END 2018-08-03 10:21 | disposition home health service (06) ==
LOC: NEDA 21:07 → NEPE 21:07 → HCIN 08-01 01:37
PROVIDERS: ADMIT Hospitalist; ATTEND Hospitalist